=== PATIENT | female | born 1990 ===

== ENCOUNTER 2016-12-22 16:02 | Emergency (ER) | payer MEDICAID, OTHER ==
[2016-12-22 16:03] VITALS: BMI 32.1
--- NOTE | 2016-12-22 17:32 | C.PDOC ---
History Of Present Illness 26 yr old female presents to the ER for rectal bleeding for 1 day. Patient reports of similar episode in the past due to hemorrhoids. Patient is currently menstruating. Patient denies fever, chills, nausea, vomiting, abdominal pain, diarrhea, dysuria, back pain, weakness or numbness. Time Seen by Provider: 12/22/16 16:57 Chief Complaint (Nursing): GI Problem History Per: Patient History/Exam Limitations: no limitations Onset/Duration Of Symptoms: Days (1) Past Medical History Reviewed: Historical Data, Nursing Documentation, Vital Signs Vital Signs: Last Vital Signs Temp 99.2 F 12/22/16 16:28 Pulse 100 H 12/22/16 16:28 Resp 20 12/22/16 16:28 BP 130/85 12/22/16 16:28 Pulse Ox 99 12/22/16 18:00 - Medical History PMH: Anemia, Arthritis, Asthma, Back Problems, Depression, Hypercholesterolemia , Chronic Pain (back pain) - [facility] Procedures INJECT/INFUSE NEC (04/19/14) Family History: States: No Known Family Hx - Social History Hx Tobacco Use: No Hx Alcohol Use: No Hx Substance Use: No - Immunization History Hx Tetanus Toxoid Vaccination: No Hx Influenza Vaccination: No Hx Pneumococcal Vaccination: No Review Of Systems Except As Marked, All Systems Reviewed And Found Negative. Constitutional: Negative for: Fever, Chills Gastrointestinal: Positive for: Hematochezia. Negative for: Nausea, Vomiting, Abdominal Pain, Diarrhea Genitourinary: Negative for: Dysuria Musculoskeletal: Negative for: Back Pain Neurological: Negative for: Weakness, Numbness Physical Exam - Physical Exam Appears: Well, Non-toxic, No Acute Distress Skin: Normal Color, Warm, Dry, No Rash Head: Atraumatic, Normacephalic Eye(s): bilateral: Normal Inspection, PERRL, EOMI Oral Mucosa: Moist Chest: Symmetrical, No Tenderness Cardiovascular: Rhythm Regular, No Murmur Respiratory: Normal Breath Sounds, No Rales, No Rhonchi, No Wheezing Gastrointestinal/Abdominal: Normal Exam, Soft, No Tenderness, No Guarding, No Rebound, No Ascites Rectal: Normal Exam, No Hemorrhoids, No Mass Extremity: Normal ROM, No Swelling Neurological/Psych: Oriented x3, Normal Speech, Normal Motor ED Course And Treatment - Laboratory Results Result Diagrams: 12/22/16 17:41 12/22/16 17:41 Lab Interpretation: Normal Urine POC: Negative O2 Sat by Pulse Oximetry: 99 Progress Note: on re-evaluation abdomen soft non-tender. Patient advised to follow up with PMD for further evaluation Reassessment Condition: Unchanged Medical Decision Making Medical Decision Making: PLAN: * CBC * HCG Urine * Urinalysis Disposition - Disposition Referrals: 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 - Scribe Statement The provider has reviewed the documentation as recorded by the Scribe Radha Mills All medical record entries made by the Scribe were at my direction and personally dictated by me. I have reviewed the chart and agree that the record accurately reflects my personal performance of the history, physical exam, medical decision making, and the department course for this patient. I have also personally directed, reviewed, and agree with the discharge instructions and disposition.
[2016-12-22 17:49] LABS: BASO % 0.5 % (0.0-2.0); EOS % 0.9 % (0.0-4.0); HEMATOCRIT 34.3 % (34.0-47.0); LYMPH # 1.1 K/uL (1.0-4.3); MEAN CELL VOLUME 81.4 fL (81.0-99.0); MEAN CORPUSCULAR HEMOGLOBIN 26.4 pg (27.0-31.0); MEAN CORPUSCULAR HGB CONC 32.4 g/dL (33.0-37.0); MEAN PLATELET VOLUME 7.3 fL (7.2-11.7); MONO # 0.9 K/uL (0.0-0.8); MONO % 17.6 % (0.0-10.0); RED CELL DISTRIBUTION WIDTH 14.7 % (11.5-14.5); WHITE BLOOD COUNT 5.2 K/uL (4.8-10.8)
[2016-12-22 17:56] LABS: CHLORIDE 96 mmol/L (98-107); POTASSIUM 3.7 mmol/L (3.6-5.2); SODIUM 135 mmol/L (132-148)
[2016-12-22 17:59] LABS: BLOOD UREA NITROGEN 10 mg/dL (7-17); CARBON DIOXIDE 26 mmol/L (22-30); GFR AFRICAN-AMERICAN > 60
[2016-12-22 18:00] LABS: CALCIUM 8.3 mg/dl (8.6-10.4); GLUCOSE,RANDOM 82 mg/dL (65-105); RBC URINE < 1 /hpf (0-3); URINE BILIRUBIN NEGATIVE (NEGATIVE); URINE BLOOD NEGATIVE (NEGATIVE); URINE COLOR Straw (YELLOW); URINE GLUCOSE (UA) NORMAL (Normal); URINE KETONE NEGATIVE (NEGATIVE); URINE LEUKOCYTE ESTERASE NEG Leu/uL (Negative); URINE PROTEIN NEGATIVE (NEGATIVE); URINE UROBILINOGEN NORMAL mg/dL (0.2-1.0); WBC URINE < 1 /hpf (0-5)
[2016-12-22 18:28] VITALS: BP 124/82; PULSE 95; RESP 18; TEMP 98.9; O2SAT 96
== END 2016-12-22 18:28 | disposition home or self-care (01) ==
LOC: C.ER 16:02
DX: K64.9 Unspecified hemorrhoids (principal)

== ENCOUNTER 2017-01-26 07:28 | Day surgery (SDC) | payer MEDICAID ==
[2017-01-26 08:02] VITALS: BMI 36.0
[2017-01-26 08:04] VITALS: RESP 19; TEMP 98; O2SAT 100
[2017-01-26] MEDS ORDERED: Lactated Ringer's 500 ML IV SCH (08:30)
[2017-01-26] MEDS ORDERED: Propofol 10 mg/ml Inj (20 ML) ONE ×2 (09:34)
--- NOTE | 2017-01-26 09:34 | CP.SDSHP ---
Same Day Surgery H & P - History Proposed Procedure: colonoscopy Pre-Op Diagnosis: rectal bleeding - Previous Medical/Surgical History Comments: Anemia, Asthma, SLE Previous Surgical History: - Allergies Allergies: Allergies No Known Allergies Allergy (Verified 01/26/17 08:02) - Current Medications Current Medications: reviewed, per reconciliation - Physical Exam General Appearance: wdwn nad Vital Signs: Vital Signs 01/26/17 01/26/17 08:03 08:22 Temperature 98.0 F 98.0 F Pulse Rate 64 64 Respiratory 19 19 Rate Blood Pressure 110/63 110/63 O2 Sat by Pulse 100 100 Oximetry Mental Status: Alert & Oriented x3 Heart: WNL Lungs: WNL GI: WNL - {Optional Preform as Required} Abdomen: WNL - Impression Impression: rectal bleeding Pt. Evaluated Today:Candidate for Anesthesia & Procedure: Yes - Date & Time Date: 01/26/17 Time: 09:34 Short Stay Discharge - Short Stay Discharge Admitting Diagnosis/Reason for Visit: RECTAL BLEEDING Disposition: HOME/ ROUTINE
[2017-01-26 11:04] VITALS: BP 119/69; PULSE 69
== END 2017-01-26 11:00 | disposition home or self-care (01) ==
LOC: C.ENDO 07:28
PROVIDERS: ATTEND Internal Medicine Gastroenterology
DX: K62.1 Rectal polyp (principal); K64.0 First degree hemorrhoids; K62.5 Hemorrhage of anus and rectum; D64.9 Anemia, unspecified; J45.909 Unspecified asthma, uncomplicated; M32.9 Systemic lupus erythematosus, unspecified; Z98.890 Other specified postprocedural states; Z79.899 Other long term (current) drug therapy

== ENCOUNTER 2017-02-17 15:40 | Emergency (ER) | payer MEDICAID ==
[2017-02-17 15:40] VITALS: BMI 36.0
[2017-02-17 16:02] VITALS: RESP 18
[2017-02-17 16:56] LABS: BASO # 0.1 K/uL (0.0-0.2); BASO % 0.6 % (0.0-2.0); EOS # 0.1 K/uL (0.0-0.7); EOS % 1.2 % (0.0-4.0); HEMATOCRIT 35.5 % (34.0-47.0); LYMPH # 2.2 K/uL (1.0-4.3); LYMPH % 17.7 % (20.0-40.0); MEAN CELL VOLUME 82.1 fL (81.0-99.0); MEAN CORPUSCULAR HGB CONC 31.7 g/dL (33.0-37.0); MEAN PLATELET VOLUME 7.1 fL (7.2-11.7); MONO # 0.9 K/uL (0.0-0.8); MONO % 7.2 % (0.0-10.0); NRBC % 0.1 % (0.0-2.0); RED CELL DISTRIBUTION WIDTH 14.6 % (11.5-14.5); WHITE BLOOD COUNT 12.2 K/uL (4.8-10.8)
[2017-02-17 17:13] LABS: CHLORIDE 99 mmol/L (98-107); POTASSIUM 4.1 mmol/L (3.6-5.2); SODIUM 135 mmol/L (132-148)
[2017-02-17 17:15] LABS: ALKALINE PHOSPHATASE 70 U/L (38-126); ALT/SGPT 28 U/L (9-52); AST/SGOT 31 U/L (14-36); BILIRUBIN,TOTAL 0.6 mg/dL (0.2-1.3); BLOOD UREA NITROGEN 14 mg/dL (7-17); CARBON DIOXIDE 25 mmol/L (22-30); GFR AFRICAN-AMERICAN > 60; TOTAL PROTEIN 7.3 g/dL (6.3-8.3)
[2017-02-17 17:16] LABS: CALCIUM 8.8 mg/dl (8.6-10.4); GLUCOSE,RANDOM 90 mg/dL (65-105)
--- NOTE | 2017-02-17 18:02 | C.PDOC ---
History Of Present Illness 26 yr old female presents to the ER with complaints of vaginal bleeding for the past few months. Patient states she feels tired and has a headache. Reports she has an appointment with [facility] but it is in few weeks so decided to come into ED to get it checked out. Patient states few days ago she started having cramping pain. Also states she went to the [facility] clinic and was todl since she is bleeding they can't examine her. Patient denies trauma, injury, fever, chills, chest pain , SOB, nausea, vomiting, diarrhea, constipation, dysuria, incontinence, weakness or numbness. Time Seen by Provider: 02/17/17 16:10 Chief Complaint (Nursing): Female Genitourinary History Per: Patient History/Exam Limitations: no limitations Onset/Duration Of Symptoms: Persistent (For months ) Recent travel outside of the [place]: No Past Medical History Reviewed: Historical Data, Nursing Documentation, Vital Signs Vital Signs: Last Vital Signs Temp 97.8 F 02/17/17 15:53 Pulse 86 02/17/17 15:53 Resp 18 02/17/17 15:53 BP 125/83 02/17/17 15:53 Pulse Ox 98 02/17/17 18:21 - Medical History PMH: Anemia, Arthritis, Asthma (NO EXACERBATION IN A YEAR), Back Problems, Depression, Hypercholesterolemia, Chronic Pain (back pain) - [employer] Procedures INJECT/INFUSE NEC (04/19/14) Family History: States: No Known Family Hx - Social History Hx Tobacco Use: No Hx Alcohol Use: No Hx Substance Use: No - Immunization History Hx Tetanus Toxoid Vaccination: No Hx Influenza Vaccination: No Hx Pneumococcal Vaccination: No Review Of Systems Except As Marked, All Systems Reviewed And Found Negative. Constitutional: Positive for: Weakness. Negative for: Fever, Chills Cardiovascular: Negative for: Chest Pain Respiratory: Negative for: Shortness of Breath Gastrointestinal: Positive for: Abdominal Pain (Crampy pain ). Negative for: Nausea, Vomiting, Diarrhea, Constipation Genitourinary: Positive for: Vaginal Bleeding. Negative for: Dysuria, Incontinence Neurological: Positive for: Headache. Negative for: Weakness, Numbness Physical Exam - Physical Exam Appears: Well, Non-toxic, No Acute Distress Skin: Warm, Dry, No Rash Head: Atraumatic, Normacephalic Eye(s): bilateral: Normal Inspection, PERRL, EOMI Neck: Normal, Normal ROM, Supple Chest: Symmetrical, No Tenderness Cardiovascular: Rhythm Regular, No Murmur Respiratory: Normal Breath Sounds, No Rales, No Rhonchi, No Wheezing Gastrointestinal/Abdominal: Soft, Tenderness (Mild superpubic tenderness), No Guarding, No Rebound Extremity: Normal ROM, No Swelling Neurological/Psych: Oriented x3, Normal Speech, Normal Motor ED Course And Treatment - Laboratory Results Result Diagrams: 02/17/17 16:46 02/17/17 16:46 O2 Sat by Pulse Oximetry: 98 - CT Scan/US Pelvic US Other Rad Studies (CT/US): Read By Radiologist, Radiology Report Reviewed CT/US Interpretation: Accession No. : [id number]. Patient Name / ID : MO NEWMAN / [id number]. Exam Date : 02/17/2017 18:12:20 ( Approved ). Study Comment : Sex / Age : F / 26Y. Creator : Marissa Lr MD. Dictator : Marissa Lr MD. Residential Mortgage Underwriter : Divorce Lawyer : Marissa Lr MD. Approver2 : Report Date : 02/17/2017 18:58:57. My Comment : . This report is currently processing and HAS NOT BEEN OFFICIALLY SIGNED BY THE PHYSICIAN - ESTIMATED TIME OF APPROVAL IS 02/17/2017 19:04. HISTORY: VAGINAL BLEEDING. COMPARISON: None available. TECHNIQUE: Real-time transabdominal pelvic ultrasound was performed. In addition a transvaginal pelvic ultrasound was necessary to better depict pelvic anatomy. FINDINGS: UTERUS: Measures 10.1 x 3.7 x 4.7 cm. Retroverted. ENDOMETRIUM: Measures 8 mm in diameter. Limited visualization of the IUD due to retroverted uterine alignment and habitus. CERVIX: Fluid noted within the cervix. RIGHT OVARY: Measures 3.4 x 2.4 x 2.8 cm. Blood flow is demonstrated. 2.3 x 1.6 x 2 cm follicle/cyst. LEFT OVARY: Measures 3.3 x 3.1 x 3.5 cm. Blood flow is demonstrated. 2.7 x 2.2 x 2.3 cm follicle/cyst. FREE FLUID: No significant pelvic free fluid noted. OTHER FINDINGS: None. IMPRESSION: Limited study. IUD. Limited visualization of the IUD due to retroverted uterine alignment and habitus. Fluid is noted within the cervix. Bilateral ovarian follicles/cysts. Progress Note: Patient will be /c home. She will be referred to [facility] for follow up. Medical Decision Making Medical Decision Making: PLAN: * US - Pelvis * CBC * CMP * BETA Quant Disposition - Disposition Referrals: Ileana Maxwell MD [Medical Doctor] - Disposition: HOME/ ROUTINE Disposition Time: 19:02 Condition: STABLE Additional Instructions: Follow up with OBGYN within 1-2 days. Return to ED if feel worse. 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 - Scribe Statement The provider has reviewed the documentation as recorded by the Scribe Radha Mills All medical record entries made by the Scribe were at my direction and personally dictated by me. I have reviewed the chart and agree that the record accurately reflects my personal performance of the history, physical exam, medical decision making, and the department course for this patient. I have also personally directed, reviewed, and agree with the discharge instructions and disposition.
--- NOTE | 2017-02-17 19:00 | US ---
HISTORY: VAGINAL BLEEDING COMPARISON: None available. TECHNIQUE: Real-time transabdominal pelvic ultrasound was performed. In addition a transvaginal pelvic ultrasound was necessary to better depict pelvic anatomy. FINDINGS: UTERUS: Measures 10.1 x 3.7 x 4.7 cm. Retroverted. ENDOMETRIUM: Measures 8 mm in diameter. Limited visualization of the IUD due to retroverted uterine alignment and habitus. CERVIX: Fluid noted within the cervix. RIGHT OVARY: Measures 3.4 x 2.4 x 2.8 cm. Blood flow is demonstrated. 2.3 x 1.6 x 2 cm follicle/cyst. LEFT OVARY: Measures 3.3 x 3.1 x 3.5 cm. Blood flow is demonstrated. 2.7 x 2.2 x 2.3 cm follicle/cyst. FREE FLUID: No significant pelvic free fluid noted. OTHER FINDINGS: None. IMPRESSION: Limited study. IUD. Limited visualization of the IUD due to retroverted uterine alignment and habitus. Fluid is noted within the cervix. Bilateral ovarian follicles/cysts.
[2017-02-17 19:13] VITALS: BP 110/73; PULSE 78; TEMP 98.2; O2SAT 100
== END 2017-02-17 19:12 | disposition home or self-care (01) ==
LOC: C.ER 15:40
DX: N93.9 Abnormal uterine and vaginal bleeding, unspecified (principal)

== ENCOUNTER 2017-07-12 15:16 | Emergency (ER) | payer MEDICAID ==
[2017-07-12 15:17] VITALS: BMI 36.0
[2017-07-12 15:25] VITALS: RESP 18; TEMP 97.9; O2SAT 98
[2017-07-12 16:33] LABS: RBC URINE 1 /hpf (0-3); URINE BACTERIA RARE (<OCC); URINE BILIRUBIN NEGATIVE (NEGATIVE); URINE BLOOD NEGATIVE (NEGATIVE); URINE COLOR Yellow (YELLOW); URINE GLUCOSE (UA) NORMAL (Normal); URINE KETONE NEGATIVE (NEGATIVE); URINE LEUKOCYTE ESTERASE TRACE Leu/uL (Negative); URINE PROTEIN NEGATIVE (NEGATIVE); URINE UROBILINOGEN NORMAL mg/dL (0.2-1.0); WBC URINE 3 /hpf (0-5)
--- NOTE | 2017-07-12 17:13 | C.PDOC ---
History Of Present Illness 27 y/o female presents to ED with c/o left sided pelvic pain for 5 days. Patient reports she has had this pain before, was seen by OB-ASSOCIATE PATHOLOGIST and was supposed to have an ultrasound, but did not have one performed. Denies vaginal bleeding, back pain, fever, vomiting, diarrhea, dysuria. Time Seen by Provider: 07/12/17 15:38 Chief Complaint (Nursing): Female Genitourinary History Per: Patient History/Exam Limitations: no limitations Onset/Duration Of Symptoms: Days Current Symptoms Are (Timing): Still Present Quality Of Discomfort: "Pain" Associated Symptoms: denies: Fever, Chills, Back Pain, Urinary Symptoms Recent travel outside of the [place]: No Past Medical History Reviewed: Historical Data, Nursing Documentation, Vital Signs Vital Signs: Last Vital Signs Temp 97.9 F 07/12/17 15:23 Pulse 78 07/12/17 19:02 Resp 18 07/12/17 19:02 BP 119/68 07/12/17 19:02 Pulse Ox 98 07/12/17 21:11 - Medical History PMH: Anemia, Arthritis, Asthma (NO EXACERBATION IN A YEAR), Back Problems, Depression, Hypercholesterolemia, Chronic Pain (back pain) Denies: Chronic Kidney Disease - [employer] Procedures INJECT/INFUSE NEC (04/19/14) Family History: States: Unknown Family Hx - Social History Hx Tobacco Use: No Hx Alcohol Use: No Hx Substance Use: No - Immunization History Hx Tetanus Toxoid Vaccination: No Hx Influenza Vaccination: No Hx Pneumococcal Vaccination: No Review Of Systems Except As Marked, All Systems Reviewed And Found Negative. Constitutional: Negative for: Fever, Chills Cardiovascular: Negative for: Chest Pain Respiratory: Negative for: Cough, Shortness of Breath, Wheezing Gastrointestinal: Negative for: Nausea, Vomiting, Abdominal Pain, Diarrhea Genitourinary: Positive for: Pelvic Pain. Negative for: Dysuria, Hematuria, Vaginal Discharge, Vaginal Bleeding Skin: Negative for: Rash Neurological: Negative for: Headache, Dizziness Physical Exam - Physical Exam Appears: Non-toxic, No Acute Distress Skin: Normal Color, Warm, Dry, No Rash Head: Atraumatic, Normacephalic Eye(s): bilateral: Normal Inspection, PERRL, EOMI Oral Mucosa: Moist Neck: Normal ROM, Supple Chest: Symmetrical Cardiovascular: Rhythm Regular Respiratory: Normal Breath Sounds, No Rales, No Rhonchi, No Wheezing Gastrointestinal/Abdominal: Bowel Sounds (active), Soft, Tenderness (mild left pelvic area tenderness), No Distention, No Guarding, No Rebound Back: No CVA Tenderness Pelvic: Normal External Exam, No Vaginal Bleeding, No Vaginal Discharge, No Cervical Motion Tenderness, No Adnexal Tenderness, Other (Printing Plate Maker: Starr Aquino RN) Extremity: Normal ROM, Capillary Refill (< 2 sec.) Neurological/Psych: Oriented x3, Normal Speech, Normal Motor Gait: Steady ED Course And Treatment O2 Sat by Pulse Oximetry: 98 (RA) Pulse Ox Interpretation: Normal - CT Scan/US Ultrasound Pelvis/Transvaginal Other Rad Studies (CT/US): Read By Radiologist, Radiology Report Reviewed CT/US Interpretation: FINDINGS: UTERUS: Measures 3.6 x 4.8 x 8.7 cm. Normal in size and appearance. No fibroid or other mass lesion seen. ENDOMETRIUM: Measures 6.4 mm in diameter. IUD identified but incompletely visualized relates to body habitus and retroverted uterus. CERVIX: No cervical abnormality identified. RIGHT OVARY: Measures 2.8 x 3.8 x 3.5 cm. No solid mass. Normal flow. Multiple subcentimeter follicles. Dominant cyst 1.2 x 1.5 cm. LEFT OVARY : Measures 2.4 x 3.1 x 2.3 cm. No solid mass. Normal flow. Multiple subcentimeter follicles. FREE FLUID: No significant free fluid noted. OTHER FINDINGS: None. IMPRESSION: Incompletely visualized intrauterine contraceptive device. No acute findings related to/accounting for the clinical presentation. Progress Note: UA. Pelvic/TV ultrasound ordered. Medical Decision Making Medical Decision Making: UA, ultrasound, and pelvic exam are negative. The patient was instructed that it could possibly be the IUD causing the pain and to follow up with the OBGYN within 1 week. Return if worsened. Disposition - Disposition Referrals: Kameron Galloway [Staff Provider] - Disposition: HOME/ ROUTINE Disposition Time: 18:56 Condition: GOOD Additional Instructions: Follow up with the OBGYN within 1-2 days. Return if worsened. Prescriptions: Ibuprofen [Motrin Tab] 800 mg PO TID #20 tab Instructions: Pelvic Pain in Women (ED) Forms: [email or web address] (Romanian) - Clinical Impression Clinical Impression: Pelvic pain - PA / [employer] / Resident Statement MD/DO has reviewed & agrees with the documentation as recorded. - Scribe Statement The provider has reviewed the documentation as recorded by the Scribe IVANA All medical record entries made by the Scribe were at my direction and personally dictated by me. I have reviewed the chart and agree that the record accurately reflects my personal performance of the history, physical exam, medical decision making, and the department course for this patient. I have also personally directed, reviewed, and agree with the discharge instructions and disposition.
--- NOTE | 2017-07-12 18:19 | US ---
HISTORY: Left sided pelvic pain x 5 days. Menstrual status: LMP 07/01/2017. By history, negative test (concurrent with this examination). COMPARISON: 02/17/2017 TECHNIQUE: Transabdominal, transvaginal. Real -time technique with 2D, duplex and color Doppler. FINDINGS: UTERUS: Measures 3.6 x 4.8 x 8.7 cm. Normal in size and appearance. No fibroid or other mass lesion seen. ENDOMETRIUM: Measures 6.4 mm in diameter. IUD identified but incompletely visualized relates to body habitus and retroverted uterus. CERVIX: No cervical abnormality identified. RIGHT OVARY: Measures 2.8 x 3.8 x 3.5 cm. No solid mass. Normal flow. Multiple subcentimeter follicles. Dominant cyst 1.2 x 1.5 cm LEFT OVARY: Measures 2.4 x 3.1 x 2.3 cm. No solid mass. Normal flow. Multiple subcentimeter follicles. FREE FLUID: No significant free fluid noted. OTHER FINDINGS: None. IMPRESSION: Incompletely visualized intrauterine contraceptive device. No acute findings related to/accounting for the clinical presentation.
[2017-07-12 19:03] VITALS: BP 119/68; PULSE 78
== END 2017-07-12 19:03 | disposition home or self-care (01) ==
LOC: C.ER 15:16
DX: R10.2 Pelvic and perineal pain (principal)